=== PATIENT | female | born 1995 | race African-American/Black ===

== ENCOUNTER → 2017-02-02 | Outpatient (CLI) | payer OTHER ==
--- NOTE | 2017-02-02 16:05 | REP ---
Right knee series: Five views: History: Right anterior knee pain. Findings: Five views of the right knee demonstrate normal bones, joints, and soft tissues. No fracture or subluxation is seen. Impression: Negative right knee radiographs. Signed by Duarte Rich MD 02/02/2017 04:14 P
== END ==
LOC: M LRY 11:57
PROVIDERS: ATTEND Nurse Practitioner Family
DX: M25.561 Pain in right knee (principal)
CPT/HCPCS: 73564; G0463